=== PATIENT | female | born 1995 | race Caucasian/White ===

== ENCOUNTER 2023-09-09 16:28 | Observation (INO) | payer SELFPAY ==
[2023-09-09] VITALS (22 sets, daily range): BP systolic 80–153; BP diastolic 43–103; PULSE 101–116; RESP 16–27; TEMP 36.3–36.8; O2SAT 96–100; BMI 51.0
--- NOTE | ~2023-09-09 | US_ITS ---
US pelvic complete Ordering provider: Maddison Chavarria MD History: . vaginal bleeding . Comparison: None. Technique: Transabdominal and endovaginal ultrasound of the pelvis (Doppler ultrasound interrogation techniques used as needed for this exam.) FINDINGS: Complex collection within the distended vaginal canal measuring 8.9 x 6 x 7.4 cm. CERVIX: Normal. UTERUS: Measures 8.2 x 3.7x 4.2 cm in length which is within normal limits and is anteverted. No konrad metrial masses. ENDOMETRIUM: Normal in thickness measuring 3 mm. (Note: the premenopausal endometrium may measure up to 16 mm when in the secretory phase.) No endometrial masses, cysts or fluid. CUL DE SAC: No free fluid. RIGHT OVARY: Normal in size measuring 3.5 x 2.5 x 2.2 cm Normal echotexture. Doppler vascular flow pr esent. LEFT OVARY: Normal in size measuring 3.4 x 1.5 x 2.6 cm. Normal echotexture. Doppler vascular flow pr esent. ADNEXA: Normal. No mass. IMPRESSION: Complex collection in the vaginal canal which may be a hematoma, complex cyst or a mass. Clinical antoinette luation advised. Otherwise, normal pelvic ultrasound. Reviewed, dictated and finalized at location A. IMPRESSION: Complex collection in the vaginal canal which may be a hematoma, complex cyst o r a mass. Clinical evaluation advised. Otherwise, normal pelvic ultrasound.
--- NOTE | 2023-09-09 18:42 | ED.FEMALEGU ---
HPI - Female Genitourinary General Chief complaint: Vaginal Bleeding Stated complaint: heavy bleeding Time Seen by Provider: 09/09/23 18:38 History of Present Illness HPI Narrative: Patient is a 28-year-old female with no known medical history here today with vaginal bleeding. Patient does not currently follow with a doctor due to lack of health insurance. She states that over the last 2 days she has been having significant vaginal bleeding. She has had irregular periods for several years, in the past having gone a full year without having a menstrual cycle. She has been having a menstrual cycle about every month this year, hers began a couple of days ago and has been extremely heavy. She has been passing large clots including 2 since arrival to the ER. She has gone through approximately 5 pads today but notes that the bleeding was so significant that she sat on the toilet for a large portion of the day today and just let the blood dripped into the toilet. She does note that she went into her [place] emergency department near her home last night. She states that they did blood work and IV fluids and prescribed her methyl progesterone, first dose taken around 10 am today. She notes that the bleeding had somewhat improved this morning then increase again around 2 pm. She has had several episodes of near syncope throughout the day today including 1 here in the department where she began having fuzzy vision, blurred hearing, felt lightheaded as though she may pass out. She denies any loss of consciousness. She does not have an OBGYN she is established with. Related Data Allergies Allergy/AdvReac Type Severity Reaction Status Date / Time No Known Allergies Allergy Verified 09/09/23 18:00 Review of Systems Review of Systems: All systems reviewed & are unremarkable except as noted in HPI and below Exam Narrative: GENERAL: Well-appearing, well-nourished, and in no acute distress. HEAD: Normocephalic, atraumatic. EYES: PERRLA and EOMI. ENT: Nares clear. Mucous membranes moist. NECK: Supple. CHEST: Clear to auscultation. No respiratory distress. HEART: Tachycardic. Normal peripheral pulses. ABDOMEN: Soft, mildly tender in the suprapubic region, nondistended. EXTREMITIES: Normal range of motion. No edema. SKIN: Warm, dry, no rash. NEURO: No focal deficits. Alert and oriented x3. PSYCH: Normal mood and affect. Course Course Emergency Course: Chart review performed, patient here with a regular periods, here with vaginal bleeding since 7:00 p.m. last night. Reportedly went to an ER in [place] is prescribed with Provera which she took this morning. Bleeding got heavy again around 1400 with large blood clots. Here due to dizziness and continued heavy bleeding. Triage vitals show HTN, tachycardia, otherwise normal. Triage workup reviewed, coags negative. Electrolytes grossly normal. Mild elevation in AST and ALT, beta hCG negative. CBC pending. US ordered and pending. Patient seen evaluated, she is tachycardic, does have some pallor. Concern for large volume of blood loss from excessive vaginal bleeding over the last 2 days. Type and screen as well as CBC are pending in anticipation of possible need for blood transfusion. Ultrasound is also pending. Will plan on pelvic exam and discussion with OBGYN as needed. Patient and family at bedside agreeable to workup and plan. Called the patient's room as she became hypotensive and near syncopal. Patient evaluated, has pallor and a blood pressure of 80s/60s. She is beginning to improve while I am in the room with improving blood pressures. Still remains hypotensive however. I did perform a pelvic exam which showed large clots and a rapidly filling speculum exam with bright red blood, some clots present and complete obstruction of cervix by blood volume. Patient appears to have a hgb of 8.2 with rapid blood loss, no comparison for her baseline hemoglobin but was told it was normal l
[2023-09-09 18:44] LABS: Alanine Aminotransferase 75 U/L (6-35); Albumin Level 3.6 g/dL (3.5-5.1); Alkaline Phosphatase 84 U/L (38-126); Anion Gap 6 mmol/L (4-12); Aspartate Amino Transferase 51 U/L (14-36); Bilirubin,Total 0.3 mg/dL (0.2-1.3); Blood Urea Nitrogen 13 mg/dL (7-17); Calcium 8.4 mg/dL (8.4-10.2); Carbon Dioxide 22 mmol/L (22-30); Chloride 111 mmol/L (98-107); Estimated CRCL calculation 138 ml/min; Estimated Glomerular Filt Rate > 60; Glucose 169 mg/dL (65-110); Potassium 4.1 mmol/L (3.4-5.0); Sodium 139 mmol/L (137-145)
[2023-09-09 18:45] LABS: Prothrombin Time 13.9 Seconds (11.1-14.7)
[2023-09-09 18:46] LABS: Partial Thromboplastin Time 30.4 Seconds (22.3-36.8)
[2023-09-09 18:59] LABS: Beta HCG Quantitative < 2.39 mIU/ML
--- NOTE | 2023-09-09 19:23 | PC.NURSE ---
Report received from IVORY Carr. Assumed care of patient at this time.
[2023-09-09 19:41] LABS: Basophils Absolute Auto 0.1 K/mm3 (0.0-0.1); Basophils Percent Auto 0.3 % (0.2-1.2); Eosinophils Absolute Auto 0.1 K/mm3 (0-0.3); Eosinophils Percent Auto 0.3 % (0-4.4); Hematocrit 27.2 % (37.0-47.0); Hemoglobin 8.2 g/dL (12.0-15.0); Immature Granulocyte Absolute 0.07 K/mm3 (0.00-0.031); Immature Granulocyte Percent A 0.4 % (0-0.5); Lymphocytes Absolute Auto 2.66 K/mm3 (0.9-3.2); Mean Corpuscular HGB Conc 30.1 g/dl (32-36); Mean Corpuscular Hemoglobin 24.7 pg (26-34); Mean Corpuscular Volume 81.9 fl (80-100); Mean Platelet Volume 10.1 fl (7.4-10.4); Monocytes Absolute Auto 0.8 K/mm3 (0.1-0.6); Monocytes Percent Auto 4.5 % (2.6-8.5); Neutrophils Absolute Auto 14.1 K/mm3 (1.3-6.7); Neutrophils Percent Auto 79.5 % (45.5-73.1); Platelet Count Result 358 k/mm3 (150-375); Red Blood Count 3.32 M/mm3 (4.2-5.4); Red Cell Distribution Width 15.1 % (11.5-14.5); White Blood Count 17.8 K/mm3 (4.5-10.0)
--- NOTE | 2023-09-09 19:52 | ECG_ITS ---
[facility] [address] Test Date: 2023-09-09 Pat Name: Misty Tatum Department: Room: 331 Gender: F Report Checker: : 1995 Requested By: Maddison Chavarria Order Number: [id number] Deborah MD: Omid Bledsoe M.D. Measurements Intervals Hibbs Rate: 106 P: 8 WA: 152 QRS: 27 QRSD: 84 T: 6 QT: 333 QTc: 443 Interpretive Statements SINUS TACHYCARDIA ABNORMAL RHYTHM ECG No previous ECG available for comparison Electronically Signed On 09-12-2023 07:54:13 CDT by Omid Bledsoe M.D.
[2023-09-09] MEDS: LACTATED RINGERS 1,000 ML 999 ML IV CONT (20:04)
[2023-09-09] MEDS: SODIUM CHLORIDE 0.9% IV 250 ML 30 ML IV CONT (20:51)
[2023-09-09] MEDS: TUBING, BLOOD PLUM PUMP TUBING 1 EACH XX (20:52)
[2023-09-09] MEDS: ESTROGENS, CONJUGATED 25 MG/5 ML VIAL IV PUSH (21:31)
[2023-09-09] MEDS: SODIUM CHLORIDE 0.9% IV 1,000 ML 125 ML IV CONT (23:00)
[2023-09-09 23:58] LABS: Glucose Point of Care 144 mg/dl (65-105)
[2023-09-10] VITALS (20 sets, daily range): BP systolic 100–150; BP diastolic 47–82; PULSE 91–102; RESP 16–22; TEMP 36.3–37; O2SAT 91–100
--- NOTE | 2023-09-10 00:47 | PC.NURSE ---
2244 Ambulating with patient back from bathroom at this time, patient says she feels weird and had a syncopal episode at this time. Patient lowered to chair. Patient became very pale and diaphoretic at this time. VS 83/49 HR 107. Blood sugar 144. Call made to Dr. Hernandez's exchange at this time. After sitting in chair for 5 mins, patient says she feels better. VS taken again BP 108/45 HR 107. Gait belt applied to patient and x3 assist back to bed. Patient able to make it back to bed, but became dizzy and had another near syncopal episode at bedside. 2299 Dr. Hernandez returned call at this time. Episode explained. New orders received to change premarin from Q6H to Q4H and order CBC for 299. Cont fluids as ordered.
[2023-09-10] MEDS: ESTROGENS, CONJUGATED 25 MG/5 ML VIAL IV PUSH ×4 (01:20→14:49)
[2023-09-10] MEDS: WATER, STERILE FOR INJECTION 10 ML VIAL XX (01:20)
[2023-09-10 03:25] LABS: Basophils Percent Auto 0.2 % (0.2-1.2); Eosinophils Percent Auto 0.1 % (0-4.4); Hematocrit 23.5 % (37.0-47.0); Hemoglobin 7.2 g/dL (12.0-15.0); Immature Granulocyte Absolute 0.08 K/mm3 (0.00-0.031); Immature Granulocyte Percent A 0.5 % (0-0.5); Lymphocytes Absolute Auto 2.81 K/mm3 (0.9-3.2); Lymphocytes Percent Auto 18.2 % (18.3-44.2); Mean Corpuscular HGB Conc 30.6 g/dl (32-36); Mean Corpuscular Hemoglobin 25.4 pg (26-34); Mean Corpuscular Volume 82.7 fl (80-100); Mean Platelet Volume 10.3 fl (7.4-10.4); Monocytes Absolute Auto 0.5 K/mm3 (0.1-0.6); Monocytes Percent Auto 3.2 % (2.6-8.5); Neutrophils Percent Auto 77.8 % (45.5-73.1); Platelet Count Result 300 k/mm3 (150-375); Red Blood Count 2.84 M/mm3 (4.2-5.4); Red Cell Distribution Width 15.1 % (11.5-14.5); White Blood Count 15.4 K/mm3 (4.5-10.0)
--- NOTE | 2023-09-10 03:40 | PC.NURSE ---
Hgb 7.[address] Hernandez notified. New orders received to transfuse 2 units PRBC.
--- NOTE | 2023-09-10 09:43 | PM.IMHP ---
H&P: HPI History of Present Illness Date/Time: 09/10/23 09:43 Chief Complaint: Heavy bleeding Narrative: 28 y/o with heavy bleeding for 2 days with passage of clots and hypovolemic symptoms. She has a past history of irregular periods. States periods have been regular this year except no period in Jun and her last period lasted less than a day. She has not had a pelvic or pap smear in years. Has cramping mild with periods. She was seen at an ED the day before and given Depoprovera and continued to have have bleeding and presented to [place] ED. She did have clots on exam and symptomatic anemia. Ultrasound did not show any significant abnormalities, showed apparent clot in vaginal canal. Review of Systems Review of Systems: All systems reviewed & are unremarkable except as noted in HPI and below Cardiovascular: Cardiovascular: Reports no additional cardiovascular complaints Respiratory: Respiratory: Reports no additional respiratory complaints and Denies dyspnea Gastrointestinal: Gastrointestinal: Denies diarrhea, Denies nausea and Denies vomiting Integumentary/Breasts: Skin/Breast: Reports system reviewed and no additional complaints, except as docu Neurologic: Reports system reviewed and no additional complaints, except as documented [facility] Social History Social History Smoking status: Never smoker Second hand tobacco smoke exposure: No Alcohol intake: never Substance use: current Substance use type: marijuana Do You Feel Safe in your Home?: Yes Lack of Transportation: No Lack of Food: Never True Current Housing: I Have Housing Concerned About Future Housing: No Difficulty Paying Gas/Electric Bills: No Difficulty Paying for Meds: YES Currently Unemployed: No Education: High School Diploma/GED Difficulty w/ Childcare or Family Care: No Spiritual care concerns: No Meds Home Medications and Allergies Home Medications Medication Instructions Recorded Confirmed Type No Home Medications 09/09/23 09/09/23 History Allergies Allergy/AdvReac Type Severity Reaction Status Date / Time No Known Allergies Allergy Verified 09/09/23 18:00 Vital Signs Vital Signs - 24 hr 09/09/23 16:30 09/09/23 18:35 09/09/23 18:48 Temperature 97.9 F Pulse Rate 115 H 114 H 101 H Respiratory Rate 16 20 18 Blood Pressure 153/99 H 107/61 103/67 Pulse Oximetry 99 100 96 Oxygen Delivery 09/09/23 19:53 09/09/23 20:05 09/09/23 20:05 Temperature Pulse Rate 107 H 108 H 101 H Respiratory Rate 18 Blood Pressure 80/59 L 91/43 L 97/72 L Pulse Oximetry 98 Oxygen Delivery 09/09/23 20:54 09/09/23 20:56 09/09/23 21:11 Temperature 97.4 F L 97.4 F L 97.5 F L Pulse Rate 116 H 115 H 116 H Respiratory Rate 27 H 19 20 Blood Pressure 137/103 H 137/103 H 100/65 Pulse Oximetry 100 100 100 Oxygen Delivery 09/09/23 21:11 09/09/23 19:42 09/09/23 19:45 Temperature 97.5 F L Pulse Rate 113 H 114 H 106 H Respiratory Rate 20 27 H 16 Blood Pressure 100/65 Pulse Oximetry 100 99 97 Oxygen Delivery 09/09/23 20:12 09/09/23 20:15 09/09/23 20:45 Temperature Pulse Rate 106 H 106 H 114 H Respiratory Rate 21 H 17 26 H Blood Pressure Pulse Oximetry 97 100 99 Oxygen Delivery 09/09/23 21:47 09/09/23 21:51 09/09/23 21:14 Temperature Pulse Rate 112 H 111 H 109 H Respiratory Rate 20 20 20 Blood Pressure 108/61 108/61 Pulse Oximetry 100 100 100 Oxygen Delivery 09/09/23 21:15 09/09/23 21:16 09/09/23 22:11 Temperature 98.2 F Pulse Rate 112 H 107 H 107 H Respiratory Rate 22 H 17 16 Blood Pressure 99/57 L 111/56 L Pulse Oximetry 100 100 100 Oxygen Delivery 09/09/23 23:11 09/10/23 00:05 09/09/23 22:45 Temperature 97.8 F Pulse Rate 109 H 107 H Respiratory Rate 16 20 Blood Pressure 107/53 L 83/49 L Pulse Oximetry 97 97 Oxygen Delivery Room Air 09/09/23 22:50 09/10/23 04:27 06
--- NOTE | 2023-09-10 09:51 | PM.GYNPNOP ---
TOOTH POLISHER - A/P Assessment and plan (1) Dysfunctional uterine bleeding: Code(s): N93.8 - Other specified abnormal uterine and vaginal bleeding Status: Acute Assessment and Plan: Minimal bleeding with 3 doses of Premarin. Will give one more dose and then discontinue and then start oral contraceptive pill. Discussed with her possible etiologies for the abnormal bleeding and the evaluation. (2) Acute blood loss anemia: Code(s): D62 - Acute posthemorrhagic anemia Status: Acute Assessment and Plan: She is currently asymptomatic. Bleeding improved. She will get her 3rd unit PRBC. Will add oral iron. Recheck cbc 4 hours 3rd unit. Time Spent With Patient Time: Total time spent is greater than 50% in coordination of care (as documented) at patient's floor/unit and/or counseling patient: Time with patient: less than 15 minutes TOOTH POLISHER- PN:Lary Post-Op Subjective Date/time seen: 09/10/23 09:51 Interval history: She has not felt any gushes. Last pad change last pm. Pad this morning with minimal blood. She was monitored on telemetry due to syncopal symptoms. Subjective: patient reports feeling better Exam Const: General: comfortable and no acute distress Resp: Effort & Inspection: normal respiratory effort Cardio: Rate: regular rate GI: Inspection: normal to inspection (nontender) : External Female Exam: normal external appearance TOOTH POLISHER - PN: Obj Data Vital Signs Vital Signs: Vital Signs - 24 hr 09/09/23 16:30 09/09/23 18:35 09/09/23 18:48 Temperature 97.9 F Pulse Rate 115 H 114 H 101 H Respiratory Rate 16 20 18 Blood Pressure 153/99 H 107/61 103/67 Pulse Oximetry 99 100 96 Oxygen Delivery 09/09/23 19:53 09/09/23 20:05 09/09/23 20:05 Temperature Pulse Rate 107 H 108 H 101 H Respiratory Rate 18 Blood Pressure 80/59 L 91/43 L 97/72 L Pulse Oximetry 98 Oxygen Delivery 09/09/23 20:54 09/09/23 20:56 09/09/23 21:11 Temperature 97.4 F L 97.4 F L 97.5 F L Pulse Rate 116 H 115 H 116 H Respiratory Rate 27 H 19 20 Blood Pressure 137/103 H 137/103 H 100/65 Pulse Oximetry 100 100 100 Oxygen Delivery 09/09/23 21:11 09/09/23 19:42 09/09/23 19:45 Temperature 97.5 F L Pulse Rate 113 H 114 H 106 H Respiratory Rate 20 27 H 16 Blood Pressure 100/65 Pulse Oximetry 100 99 97 Oxygen Delivery 09/09/23 20:12 09/09/23 20:15 09/09/23 20:45 Temperature Pulse Rate 106 H 106 H 114 H Respiratory Rate 21 H 17 26 H Blood Pressure Pulse Oximetry 97 100 99 Oxygen Delivery 09/09/23 21:47 09/09/23 21:51 09/09/23 21:14 Temperature Pulse Rate 112 H 111 H 109 H Respiratory Rate 20 20 20 Blood Pressure 108/61 108/61 Pulse Oximetry 100 100 100 Oxygen Delivery 09/09/23 21:15 09/09/23 21:16 09/09/23 22:11 Temperature 98.2 F Pulse Rate 112 H 107 H 107 H Respiratory Rate 22 H 17 16 Blood Pressure 99/57 L 111/56 L Pulse Oximetry 100 100 100 Oxygen Delivery 09/09/23 23:11 09/10/23 00:05 09/09/23 22:45 Temperature 97.8 F Pulse Rate 109 H 107 H Respiratory Rate 16 20 Blood Pressure 107/53 L 83/49 L Pulse Oximetry 97 97 Oxygen Delivery Room Air 09/09/23 22:50 09/10/23 04:27 09/10/23 04:42 Temperature 97.3 F L 97.3 F L Pulse Rate 107 H 101 H 99 Respiratory Rate 18 18 Blood Pressure 108/45 L 100/54 L 101/47 L Pulse Oximetry 94 95 Oxygen Delivery 09/10/23 04:00 09/10/23 05:42 09/10/23 06:40 Temperature 97.3 F L 98.6 F 97.6 F Pulse Rate 102 H 95 97 Respiratory Rate 18 16 22 H Blood Pressure 116/66 113/69 124/73 Pulse Oximetry 100 100 91 Oxygen Delivery 09/10/23 07:58 Temperature 97.3 F L Pulse Rate 97 Respiratory Rate 16 Blood Pressure 133/77 Pulse Oximetry 99 Oxygen Delivery Intake/Output Intake/Output: Intake & Output 09/07/23 09/08/23 09/09/23 09/10/23 23:59 23:59 23:59 23:59 Intake Total 1350 350 Balance 1350 350 Meds/Results Medications: Active Medications Generic
[2023-09-10] MEDS: SODIUM CHLORIDE 0.9% IV 1,000 ML 125 ML IV CONT ×2 (09:55→21:10)
[2023-09-10] MEDS: diphenhydrAMINE HCl INJ 50 MG/ML VIAL IV PUSH (11:04)
[2023-09-10] MEDS: ONDANSETRON INJ 4 MG/2 ML VIAL IV PUSH (11:34)
--- NOTE | 2023-09-10 17:44 | PC.NURSE ---
spoke with Dr. Hernandez's exchange about discontinuing IV estrogen as bleeding has significantly decreased. No new orders at this time.
[2023-09-10 17:59] LABS: Hematocrit 27.9 % (37.0-47.0); Hemoglobin 8.5 g/dL (12.0-15.0); Mean Corpuscular HGB Conc 30.5 g/dl (32-36); Mean Corpuscular Hemoglobin 26.6 pg (26-34); Mean Corpuscular Volume 87.5 fl (80-100); Mean Platelet Volume 10.4 fl (7.4-10.4); Platelet Count Result 318 k/mm3 (150-375); Red Blood Count 3.19 M/mm3 (4.2-5.4); Red Cell Distribution Width 15.2 % (11.5-14.5); White Blood Count 18.3 K/mm3 (4.5-10.0)
[2023-09-10] MEDS: FERROUS SULFATE 325 MG TABLET DR PO (18:46)
[2023-09-11] VITALS: PULSE 89
[2023-09-11 04:00] VITALS: PULSE 85
[2023-09-11 05:48] VITALS: BP 129/79; PULSE 89; RESP 18; TEMP 36.3; O2SAT 96
[2023-09-11 06:16] LABS: Hematocrit 27.9 % (37.0-47.0); Hemoglobin 8.7 g/dL (12.0-15.0); Mean Corpuscular HGB Conc 31.2 g/dl (32-36); Mean Corpuscular Volume 86.6 fl (80-100); Mean Platelet Volume 9.8 fl (7.4-10.4); Platelet Count Result 282 k/mm3 (150-375); Red Blood Count 3.22 M/mm3 (4.2-5.4); Red Cell Distribution Width 15.6 % (11.5-14.5); White Blood Count 16.2 K/mm3 (4.5-10.0)
[2023-09-11 06:39] LABS: Anion Gap 2 mmol/L (4-12); Blood Urea Nitrogen 14 mg/dL (7-17); Calcium 7.6 mg/dL (8.4-10.2); Carbon Dioxide 22 mmol/L (22-30); Chloride 110 mmol/L (98-107); Estimated CRCL calculation 160 ml/min; Estimated Glomerular Filt Rate > 60; Glucose 80 mg/dL (65-110); Potassium 4.1 mmol/L (3.4-5.0); Sodium 134 mmol/L (137-145)
[2023-09-11 08:00] VITALS: BP 140/89; PULSE 92; RESP 16; TEMP 36.7; O2SAT 97
[2023-09-11 08:01] VITALS: PULSE 92
[2023-09-11] MEDS: estradioL 1 MG TABLET PO (08:06)
[2023-09-11] MEDS: FERROUS SULFATE 325 MG TABLET DR PO (08:06)
--- NOTE | 2023-09-11 10:37 | PM.GYNPNOP ---
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 Hemodynamicly stable. Will discharge to home. Will prescribe control pill. Bleeding precautions discussed. Time Spent With Patient Time: Total time spent is greater than 50% in coordination of care (as documented) at patient's floor/unit and/or counseling patient: Time with patient: less than 15 minutes BANBUR[employer] MILL OPERATOR- PN:Lary Post-Op Subjective Date/time seen: 09/11/23 10:37 Interval history: She states she feels fine. Minimal bleeding. Pad from last night dry. No hypovolemic symptoms. Review of Systems Review of Systems: All systems reviewed & are unremarkable except as noted in HPI and below Cardiovascular: Cardiovascular: Reports no additional cardiovascular complaints Respiratory: Respiratory: Reports no additional respiratory complaints and Denies dyspnea Gastrointestinal: Gastrointestinal: Denies diarrhea, Denies nausea and Denies vomiting Integumentary/Breasts: Skin/Breast: Reports system reviewed and no additional complaints, except as docu Neurologic: Reports system reviewed and no additional complaints, except as documented Exam Const: General: comfortable and no acute distress Resp: Effort & Inspection: normal respiratory effort Cardio: Rate: regular rate GI: Inspection: normal to inspection (nontender) : External Female Exam: normal external appearance Other: pad dry Skin: General skin exam: normal color [employer] M[employer] OPERATOR - PN: Obj Data Vital Signs Vital Signs: Vital Signs - 24 hr 09/10/23 11:07 09/10/23 11:22 09/10/23 12:22 Temperature 97.5 F L 97.6 F 97.4 F L Pulse Rate 96 96 99 Respiratory Rate 16 20 16 Blood Pressure 113/72 113/57 L 141/80 H Pulse Oximetry 98 99 99 Oxygen Delivery 09/10/23 12:00 09/10/23 13:22 09/10/23 14:00 Temperature 97.4 F L 97.7 F 97.7 F Pulse Rate 99 91 101 H Respiratory Rate 16 16 18 Blood Pressure 141/80 H 123/69 150/82 H Pulse Oximetry 99 97 99 Oxygen Delivery 09/10/23 16:00 09/10/23 12:03 09/10/23 16:02 Temperature 97.6 F Pulse Rate 100 91 92 Respiratory Rate 16 Blood Pressure 116/54 L Pulse Oximetry 96 Oxygen Delivery 09/10/23 20:15 09/10/23 20:00 09/11/23 00:00 Temperature 97.4 F L Pulse Rate 94 94 89 Respiratory Rate 18 18 Blood Pressure 117/75 Pulse Oximetry 100 100 Oxygen Delivery Room Air 09/11/23 05:48 09/11/23 04:00 09/11/23 08:00 Temperature 97.4 F L 98.0 F Pulse Rate 89 85 92 Respiratory Rate 18 16 Blood Pressure 129/79 140/89 Pulse Oximetry 96 97 Oxygen Delivery 09/11/23 08:00 Temperature Pulse Rate Respiratory Rate Blood Pressure Pulse Oximetry Oxygen Delivery Room Air Intake/Output Intake/Output: Intake & Output 09/08/23 09/09/23 09/10/23 09/11/23 23:59 23:59 23:59 23:59 Intake Total 1350 3326 236 Balance 1350 3326 236 Meds/Results Medications: Active Medications Generic Name Dose Route Start Last Admin Trade Name Freq PRN Reason Stop Dose Admin Estradiol 1 mg 09/11/23 09:00 09/11/23 08:06 Estradiol 1 Mg Tablet PO 1 mg QAM ARLYN Administration Ferrous Sulfate 325 mg 09/10/23 17:00 09/11/23 08:06 Ferrous Sulfate [address] PO 325 mg BID ARLYN Administration Ondansetron HCl 4 mg 09/09/23 20:47 09/10/23 11:34 Ondansetron Inj 4 Mg/2 Ml Vial IV PUSH 4 mg Q4H PRN Administration Nausea Radiology Results: ITS Impressions Pelvis Ultrasound 09/09/23 20:06 IMPRESSION: Complex collection in the vaginal canal which may be a hematoma, complex cyst or a mass. Clinical evaluation advised. Otherwise, normal pelvic ultrasound. Labs 09/11/23 06:10 09/11/23 06:10 Labs: Laboratory Results - last 24 hr 09/09/23 09/10/23 09/11/23 19:31 17:53 06:10 WBC
[2023-09-12 11:43] LABS: Insulin Level Total 58.4 uIU/mL
[2023-09-12 16:08] LABS: FSH 2.3 mIU/mL; LH 0.7 mIU/mL
[2023-09-12 16:44] LABS: Progesterone 1.1 ng/mL
--- NOTE | 2023-10-12 10:32 | PM.DS ---
DS: Admitting Diagnosis Discharge Date 09/11/23 Admitting Diagnosis menorrhagia DS: Discharge Diagnosis Discharge Diagnosis (1) Dysfunctional uterine bleeding: Code(s): N93.8 - Other specified abnormal uterine and vaginal bleeding Status: Acute (2) Acute blood loss anemia: Code(s): D62 - Acute posthemorrhagic anemia Status: Acute DS: Summary Hospital Course Reason for hospitalization: Heavy bleeding symptomatic anemia. Hospital Course: patient was admitted from the emergency room due to menorrhagia and symptomatic hypovolemia. She did receive blood transfusion in the ER and she did receive a unit on the floor. she received a total of 3 units of packed red blood cells. She was started on IV Premarin. She was then started on oral contraceptive pills after her bleeding ceased. She did get a consult or put on telemetry due to having any symptomatic hypovolemia when she presented to the ER. The menorrhagia did resolve the next day. She did not have symptoms of hypovolemia. Hemoglobin hematocrit did get to 7.2 and 23.5 when she was admitted. After her blood transfusion it was 8.7 and 27.9/ and 8.4 and 27.6. Premarin was given initially every 6 and then changed every 4. She had minimal bleeding the following Time Spent with Patient Time attestation: Total time spent providing and/or coordinating discharge services: Exam Const: General: comfortable Eyes: General: appearance normal, both eyes and all related structures Neck: Neck: normal visual inspection Resp: Effort & Inspection: normal respiratory effort GI: Inspection: normal to inspection GI Palp: No Tenderness to palpation present (GI) Neuro: General: oriented to person, oriented to place and oriented to time Extrem: General: no calf tenderness Discharge Plan Discharge Attending physician on discharge: Montez Hernandez Consulting providers: Omid Bledsoe; Tonny Banda Discharging Clinician: Montez Hernandez Anticipated Discharge Date/Time: 09/11/23 10:40 Patient Disposition: Home, Self-Care Activity: may shower Diet: regular Discharge Instructions: No strenuous exercise. Pelvic rest until has follow up appointment. Call office [phone] to make appointment. It is important to keep appointment. Continue iron therapy and oral contraceptive pills. May take over the counter Colace for constipation symptoms. Patient Instructions: Antibiotic Form Stand Alone Forms: General Discharge Information Follow-up/Referrals: Montez Hernandez MD [Physician] - Call for Appointment (call for appointment [phone] follow up in 1-2 weeks) Discharge Medications: New ferrous sulfate 325 mg (65 mg iron) Tablet,Delayed Release (Dr/Ec) 325 mg PO BID Qty: 60 0RF norethindrone ac-eth estradiol [ ()] 1.5-30 mg-mcg tablet 1 tablet PO DAILY Qty: 63 0RF Date of admission: 09/09/23 20:47 Primary Care Provider: Darshan Sol Admitting Provider: Montez Hernandez Attending physician on admission: Montez Hernandez Condition: Serious
== END 2023-09-11 11:38 | disposition home or self-care (01) ==
LOC: ANHED 19:10 → ANH3MEDSUR 21:36
PROVIDERS: Emergency Medicine; Family Medicine; Admitting Provider Obstetrics & Gynecology; Emergency Provider Student in an Organized Health Care Education/Training Program; PCP Family Medicine; Visit Provider Obstetrics & Gynecology
DX: N93.8 Other specified abnormal uterine and vaginal bleeding (principal); D62 Acute posthemorrhagic anemia; R55 Syncope and collapse; F12.90 Cannabis use, unspecified, uncomplicated
CPT/HCPCS: 36415; 36430; 76856; 80048; 80053; 82948; 83001; 83002; 83525; 84144; 84702; 85025; 85027; 85461; 85610; 85730; 86850; 86900; 86901; 86923; 93005; 96360; 96361; 96374; 96375; 96376; 99285; A9270; G0378; J1200; J1410; J2405; J7030; J7050; J7120; P9016

== ENCOUNTER 2023-09-21 16:22 | Outpatient (CLI) | payer OTHER, SELFPAY ==
[2023-09-21 16:57] LABS: Hematocrit 27.6 % (37.0-47.0); Hemoglobin 8.4 g/dL (12.0-15.0); Mean Corpuscular HGB Conc 30.4 g/dl (32-36); Mean Corpuscular Hemoglobin 25.9 pg (26-34); Mean Corpuscular Volume 85.2 fl (80-100); Mean Platelet Volume 9.5 fl (7.4-10.4); Platelet Count Result 465 k/mm3 (150-375); Red Blood Count 3.24 M/mm3 (4.2-5.4); Red Cell Distribution Width 16.8 % (11.5-14.5); White Blood Count 14.8 K/mm3 (4.5-10.0)
[2023-09-21 18:24] LABS: Free T4 Free Thyroxine 1.29 ng/mL (0.78-2.19)
[2023-09-21 18:38] LABS: Thyroid Stimulating Hormone 0.995 uIU/mL (0.465-4.680)
[2023-09-22 11:09] LABS: DHEA-Sulfate 219 mcg/dL (14-349); Prolactin 11.3 ng/mL
[2023-09-24 16:39] LABS: Testosterone Total 12 ng/dL (2-45)
== END 2023-09-21 16:23 | disposition home or self-care (01) ==
LOC: ANHLAB 16:29
PROVIDERS: PCP Family Medicine; Visit Provider Nurse Practitioner Family
DX: N93.8 Other specified abnormal uterine and vaginal bleeding (principal)
CPT/HCPCS: 36415; 82627; 83498; 84146; 84403; 84439; 84443; 85027

== ENCOUNTER 2023-10-07 14:42 | Outpatient (CLI) | payer OTHER, SELFPAY ==
--- NOTE | ~2023-10-07 | US_ITS ---
EXAMINATION: US pelvic complete w TV DATE: 10/07/2023 16:18 INDICATION: Other specified abnormal uterine and vaginal bleeding. TECHNIQUE: Multiple transabdominal and transvaginal sonographic images of the pelvis were obtained. COMPARISON: Ultrasound 09/09/23 FINDINGS: TRANSABDOMINAL ULTRASOUND: The uterus measures 8.4 x 4.1 x 6.0 cm. There is no free fluid in the pelvis. TRANSVAGINAL ULTRASOUND: The endometrial complex measures 6 mm in thickness. The right ovary measures 3.6 x 2.3 x 2.8 cm. The left ovary measures 1.5 x 2.4 x 1.9 cm. There is normal vascular flow in the ovaries. IMPRESSION: 1. Normal pelvis. Reviewed, dictated and finalized at location A. IMPRESSION: 1. Normal pelvis.
== END 2023-10-07 14:43 | disposition home or self-care (01) ==
PROVIDERS: PCP Family Medicine; Visit Provider Nurse Practitioner Family
DX: N93.8 Other specified abnormal uterine and vaginal bleeding (principal)
CPT/HCPCS: 76830; 76856

== ENCOUNTER 2023-10-13 15:50 | Outpatient (CLI) | payer OTHER, SELFPAY ==
[2023-10-13 16:23] LABS: Hematocrit 25.9 % (37.0-47.0); Hemoglobin 7.4 g/dL (12.0-15.0); Mean Corpuscular HGB Conc 28.6 g/dl (32-36); Mean Corpuscular Hemoglobin 22.8 pg (26-34); Mean Corpuscular Volume 79.7 fl (80-100); Mean Platelet Volume 9.9 fl (7.4-10.4); Platelet Count Result 432 k/mm3 (150-375); Red Blood Count 3.25 M/mm3 (4.2-5.4); Red Cell Distribution Width 17.2 % (11.5-14.5)
== END 2023-10-13 15:51 | disposition home or self-care (01) ==
LOC: ANHLAB 15:54
PROVIDERS: PCP Family Medicine; Visit Provider Nurse Practitioner Family
DX: D62 Acute posthemorrhagic anemia (principal)
CPT/HCPCS: 36415; 85027

== ENCOUNTER 2023-10-17 16:59 | Outpatient (CLI) | payer OTHER, SELFPAY ==
[2023-10-18 04:47] LABS: Iron 24 ug/dL (37-170)
[2023-10-18 04:57] LABS: Percent Iron Saturation 5 % (20-50)
== END 2023-10-17 17:00 | disposition home or self-care (01) ==
LOC: ANHLAB 17:00
PROVIDERS: PCP Family Medicine; Visit Provider Nurse Practitioner Family
DX: D62 Acute posthemorrhagic anemia (principal)
CPT/HCPCS: 36415; 82728; 83540; 83550

== ENCOUNTER 2023-11-10 13:34 | Outpatient (CLI) | payer OTHER, SELFPAY ==
[2023-11-10 14:13] LABS: Hematocrit 29.6 % (37.0-47.0); Hemoglobin 8.2 g/dL (12.0-15.0); Mean Corpuscular HGB Conc 27.7 g/dl (32-36); Mean Corpuscular Hemoglobin 20.4 pg (26-34); Mean Corpuscular Volume 73.8 fl (80-100); Mean Platelet Volume 9.8 fl (7.4-10.4); Platelet Count Result 489 k/mm3 (150-375); Red Blood Count 4.01 M/mm3 (4.2-5.4); Red Cell Distribution Width 19.2 % (11.5-14.5)
== END 2023-11-10 13:35 | disposition home or self-care (01) ==
LOC: ANHLAB 13:36
PROVIDERS: Visit Provider Obstetrics & Gynecology
DX: N93.8 Other specified abnormal uterine and vaginal bleeding (principal)
CPT/HCPCS: 36415; 85027